=== PATIENT | male | born 1970 | race Native Hawaiian/Other Pacific Islander ===

== ENCOUNTER → 2016-10-03 | Outpatient (CLI) | payer BC ==
[~2016-10-03] MED LIST: LAMO200T38 PO
[2016-10-03 10:33] LABS: CHOLESTEROL/HDL RATIO 4.5
== END | disposition home or self-care (01) ==
LOC: C.LAB 09:35
PROVIDERS: ATTEND Family Medicine
DX: Z00.00 Encounter for general adult medical examination without abnormal findings (principal)

== ENCOUNTER → 2016-11-27 | Outpatient (CLI) | payer BC | END | disposition home or self-care (01) | LOC: C.PATHSPEC 11:58 | PROVIDERS: ATTEND Ophthalmology | DX: H02.822 Cysts of right lower eyelid (principal) ==

== ENCOUNTER → 2017-12-28 | Outpatient (CLI) | payer OTHER ==
[~2017-12-28] MED LIST changes: +LAMO200T35 PO; -LAMO200T38 PO
--- NOTE | 2017-12-28 14:05 | DIAGNOSTIC IMAGING REPORT ---
LEFT FIFTH FINGER 3 VIEWS CLINICAL HISTORY: Foreign body. FINDINGS: 3 views of the left fifth finger are obtained. No prior studies are available for comparison at the time of dictation. The skeletal structures are well mineralized. No fracture or dislocation is seen. The fifth metacarpophalangeal and interphalangeal joints are maintained. There is soft tissue edema present around the proximal interphalangeal joint. No radiodense foreign body is identified. IMPRESSION: 1. No acute osseous abnormality is seen in the left fifth finger. 2. There is soft tissue edema around the proximal interphalangeal joint with no radiodense foreign body identified. Electronically signed by: Hiram Orantes M.D. 12/28/2017 2:04 PM Dictated Date/Time: 12/28/2017 2:03 PM
== END | disposition home or self-care (01) ==
LOC: C.RAD1850 13:52
PROVIDERS: ATTEND Family Medicine
DX: M79.645 Pain in left finger(s) (principal)